=== PATIENT | male | born 2000 | race African-American/Black ===

== ENCOUNTER 2021-11-19 17:21 | Emergency (ER) | payer MEDICARE, OTHER ==
[~2021-11-19] VITALS: Ht 188 cm; Wt 65.9 kg
[2021-11-19 18:37] LABS: BASOPHILS % (AUTO) 0.7 % (0.0-2.0); EOSINOPHILS % (AUTO) 2.1 % (1.0-6.0); HEMATOCRIT 46.7 % (41-53); HEMOGLOBIN 15.6 g/dL (13.5-17.5); LYMPHOCYTES # (AUTO) 1.6 K/uL (1.0-4.8); LYMPHOCYTES % (AUTO) 28.4 % (22.0-44.0); MEAN CORPUSCULAR HEMOGLOBIN 29.8 pg (26.0-34.0); MEAN CORPUSCULAR HGB CONC 33.4 G/dL (31.0-37.0); MEAN CORPUSCULAR VOLUME 89 fL (80-100); MONOCYTES # (AUTO) 0.6 K/uL (0.1-1.0); MONOCYTES % (AUTO) 10.7 % (2.0-9.0); NEUTROPHILS # (AUTO) 3.3 K/uL (1.8-7.7); NEUTROPHILS % (AUTO) 58.1 % (40.0-70.0); PLATELET COUNT (AUTO) 231 K/uL (150-450); RED BLOOD CELL COUNT(AUTO) 5.24 MIL/uL (4.50-5.90); RED CELL DISTRIBUTION WIDTH 13.5 % (11.5-14.5)
[2021-11-19 18:45] LABS: ANION GAP 7 mmol/L (8-16); CARBON DIOXIDE 30 mmol/L (22-29); CHLORIDE 102 mmol/L (98-107); CREATININE 1.11 mg/dL (0.60-1.30); GLOMERULAR FILTR. RATE CALC > 60 mL/min (>60); GLUCOSE,RANDOM 93 mg/dL (70-110); POTASSIUM 3.8 mmol/L (3.5-5.1); SODIUM SERUM 139 mmol/L (136-145); UREA NITROGEN, BLOOD 17 mg/dL (7-18)
[2021-11-19 18:51] LABS: ALANINE AMINOTRANSFERASE 18 U/L (12-78); ALBUMIN 4.8 g/dL (3.4-5.0); ALKALINE PHOSPHATASE 203 U/L (46-116); ASPARTATE AMINOTRANSFERASE 21 U/L (15-37); BILIRUBIN,TOTAL 0.3 mg/dL (0.1-1.0); TOTAL PROTEIN, SERUM 9.1 g/dL (6.4-8.2)
[2021-11-19] MEDS ORDERED: LORazepam 1 MG TABLET PO ONE (22:15)
[2021-11-19 23:00] VITALS: BP 140/65
== END 2021-11-19 23:15 | disposition home or self-care (01) ==
LOC: EMS 17:23
DX: F20.9 Schizophrenia, unspecified (principal)
CPT/HCPCS: 80053; 85025; 99285; G0480

== ENCOUNTER 2022-05-24 17:12 | Inpatient (IN) | payer MEDICARE, MEDICAID ==
[~2022-05-24] VITALS: Ht 188 cm; Wt 83.7 kg
[2022-05-24 18:12] LABS: BASOPHILS % (AUTO) 0.4 % (0.0-2.0); EOSINOPHILS % (AUTO) 1.7 % (1.0-6.0); HEMATOCRIT 41.1 % (41-53); HEMOGLOBIN 13.9 g/dL (13.5-17.5); LYMPHOCYTES # (AUTO) 1.5 K/uL (1.0-4.8); LYMPHOCYTES % (AUTO) 29.7 % (22.0-44.0); MEAN CORPUSCULAR HEMOGLOBIN 29.8 pg (26.0-34.0); MEAN CORPUSCULAR HGB CONC 33.8 G/dL (31.0-37.0); MEAN CORPUSCULAR VOLUME 88 fL (80-100); MONOCYTES # (AUTO) 0.5 K/uL (0.1-1.0); MONOCYTES % (AUTO) 10.7 % (2.0-9.0); NEUTROPHILS # (AUTO) 2.9 K/uL (1.8-7.7); NEUTROPHILS % (AUTO) 57.5 % (40.0-70.0); PLATELET COUNT (AUTO) 200 K/uL (150-450); RED BLOOD CELL COUNT(AUTO) 4.66 MIL/uL (4.50-5.90); RED CELL DISTRIBUTION WIDTH 14.7 % (11.5-14.5)
[2022-05-24 18:20] LABS: ANION GAP 8 mmol/L (8-16); CALCIUM, TOTAL 9.3 mg/dL (8.8-10.5); CARBON DIOXIDE 27 mmol/L (22-29); CHLORIDE 105 mmol/L (98-107); CREATININE 0.87 mg/dL (0.60-1.30); GLUCOSE,RANDOM 122 mg/dL (70-110); POTASSIUM 4.2 mmol/L (3.5-5.1); SODIUM SERUM 140 mmol/L (136-145); UREA NITROGEN, BLOOD 12 mg/dL (7-18)
[2022-05-24 18:24] LABS: GLOMERULAR FILTR. RATE CALC > 60 mL/min (>60)
[2022-05-24 18:26] LABS: ALANINE AMINOTRANSFERASE 84 U/L (12-78); ALBUMIN 4.2 g/dL (3.4-5.0); ALKALINE PHOSPHATASE 243 U/L (46-116); ASPARTATE AMINOTRANSFERASE 57 U/L (15-37); BILIRUBIN,TOTAL 0.2 mg/dL (0.1-1.0)
[2022-05-24] MEDS ORDERED: OXCA300T57 PO (21:30)
[2022-05-24] MEDS ORDERED: DOCU-385 PO (21:30)
[2022-05-24] MEDS ORDERED: OLAN10TA74 PO (21:30)
[2022-05-24] MEDS ORDERED: MELA5TAB40 PO (21:30)
[2022-05-24] MEDS ORDERED: GABA-1201 PO (21:30)
[2022-05-24] MEDS ORDERED: TRAZ-257 PO (21:30)
[2022-05-24] MEDS ORDERED: PROP20TA18 PO (21:30)
[2022-05-24 21:34] LABS: AMPHET/METH SCREEN,URINE NEGATIVE (NEGATIVE); BARBITURATE SCREEN, URINE NEGATIVE (NEGATIVE); BENZODIAZEPINES SCREEN,URINE NEGATIVE (NEGATIVE); CANNABINOID SCREEN,URINE NEGATIVE (NEGATIVE); COCAINE SCREEN,URINE NEGATIVE (NEGATIVE); METHADONE SCREEN, URINE NEGATIVE (NEGATIVE); OPIATE SCREEN,URINE NEGATIVE (NEGATIVE)
[2022-05-24 21:35] LABS: PHENCYCLIDINE SCREEN,URINE NEGATIVE (NEGATIVE)
[2022-05-24] MEDS ORDERED: ChlorproMAZINE HCL 100 MG TABLET PO PRN (23:00)
[2022-05-24] MEDS: ZOLPIDEM TARTRATE 10 MG TABLET PO PRN (23:41)
[2022-05-24 23:49] LABS: APPEARANCE,URINE CLEAR (CLEAR); BILIRUBIN,URINE NEGATIVE (NEGATIVE); GLUCOSE, URINE (UA) NEGATIVE (NEGATIVE); KETONES,URINE NEGATIVE (NEGATIVE); LEUKOCYTE ESTERASE ,URINE NEGATIVE (NEGATIVE); NITRATE,URINE NEGATIVE (NEGATIVE); OCCULT BLOOD,URINE NEGATIVE (NEGATIVE); PROTEIN,URINE NEGATIVE (NEGATIVE); SPECIFIC GRAVITIY, URINE 1.027 (1.003-1.030)
[2022-05-25 05:38] LABS: COVID AG,FIA SOURCE NASOPHARYNGEAL
[2022-05-25] MEDS: OLANZapine 5 MG RAPDIS TABLET PO SCH ×3 (08:33→16:58)
[2022-05-25] MEDS: GABAPENTIN 400 MG CAPSULE PO SCH ×4 (08:33→20:12)
[2022-05-25] MEDS: DIVALPROEX SODIUM 250 MG DR TABLET PO SCH ×3 (08:33→16:57)
[2022-05-25 09:20] VITALS: BP 154/96
[2022-05-25 09:21] VITALS: BP 154/96
[2022-05-25] MEDS: LORazepam 1 MG TABLET PO PRN ×2 (09:37→16:58)
[2022-05-25] MEDS ORDERED: LOPERAMIDE HCL 2 MG CAPSULE PO PRN (11:30)
[2022-05-25] MEDS ORDERED: TUBERCULIN, PURIFIED PROTEIN DERIVATIVE 5 TU/0.1 ML SYRINGE ID ONE (11:30)
[2022-05-25] MEDS ORDERED: ACETAMINOPHEN 325 MG TABLET PO PRN (11:30)
[2022-05-25] MEDS ORDERED: HydrOXYzine PAMOATE 50 MG CAPSULE PO PRN (11:30)
[2022-05-25] MEDS ORDERED: PROMETHAZINE HCL 25 MG TABLET PO PRN (11:30)
[2022-05-25] MEDS ORDERED: MAG HYDROX/AL HYDROX/SIMETH ES 30 ML SUSPENSION UDCUP PO PRN (11:30)
[2022-05-25] MEDS ORDERED: MAGNESIUM HYDROXIDE SUSPENSION 30 ML UDCUP PO PRN (11:30)
[2022-05-25] MEDS ORDERED: GuaiFENesin/D-METHORPHAN [SUGAR-FREE] 200-20MG/10 ML SYRUP UDCUP PO PRN (11:30)
[2022-05-25] MEDS: GuanFACINE HCL 1 MG TABLET PO SCH ×2 (13:00→16:57)
[2022-05-25 16:07] VITALS: BP 112/69
[2022-05-25] MEDS: THIAMINE 100 MG TABLET PO SCH (16:57)
[2022-05-25] MEDS: ZOLPIDEM TARTRATE 10 MG TABLET PO PRN (20:13)
[2022-05-25] MEDS: MELATONIN 5 MG TABLET PO SCH (20:13)
[2022-05-25] MEDS ORDERED: GABAPENTIN 400 MG CAPSULE PO SCH (21:00)
[2022-05-26 07:09] LABS: HEMOGLOBIN A1C 5.6 % (3.8-5.6)
[2022-05-26 07:24] LABS: CHOL/HDL RATIO 5.5 (4.2-7.3); FREE T4 (FREE THYROXINE) 0.94 ng/dL (0.76-1.46)
[2022-05-26 08:14] VITALS: BP 106/70
[2022-05-26] MEDS: OMEGA-3/DHA/EPA/FISH OIL 1,000 MG CAPSULE PO SCH (08:24)
[2022-05-26] MEDS: LORazepam 1 MG TABLET PO PRN ×2 (08:25→16:23)
[2022-05-26] MEDS: THIAMINE 100 MG TABLET PO SCH ×2 (08:25→16:22)
[2022-05-26] MEDS: DIVALPROEX SODIUM 250 MG DR TABLET PO SCH ×3 (08:25→16:22)
[2022-05-26] MEDS: FOLIC ACID 1 MG TABLET PO SCH (08:25)
[2022-05-26] MEDS: MULTIVITAMINS WITH MINERALS, THERAPEUTIC TABLET PO SCH (08:25)
[2022-05-26] MEDS: GABAPENTIN 400 MG CAPSULE PO SCH ×4 (08:25→20:08)
[2022-05-26] MEDS: OLANZapine 5 MG RAPDIS TABLET PO SCH ×3 (08:25→16:22)
[2022-05-26] MEDS: NALTREXONE HCL 50 MG TABLET PO SCH (08:25)
[2022-05-26] MEDS: GuanFACINE HCL 1 MG TABLET PO SCH ×2 (08:26→12:54)
[2022-05-26 16:23] VITALS: BP 123/69
[2022-05-26] MEDS: DIVALPROEX SODIUM 250 MG ER TABLET PO SCH (20:08)
[2022-05-26] MEDS: MELATONIN 5 MG TABLET PO SCH (20:09)
[2022-05-26 20:10] VITALS: BP 119/70
[2022-05-26] MEDS: ZOLPIDEM TARTRATE 10 MG TABLET PO PRN (21:18)
[2022-05-27] MEDS: LORazepam 1 MG TABLET PO PRN ×2 (08:36→16:52)
[2022-05-27] MEDS: OMEGA-3/DHA/EPA/FISH OIL 1,000 MG CAPSULE PO SCH (08:36)
[2022-05-27] MEDS: MULTIVITAMINS WITH MINERALS, THERAPEUTIC TABLET PO SCH (08:36)
[2022-05-27] MEDS: GABAPENTIN 400 MG CAPSULE PO SCH ×4 (08:36→20:43)
[2022-05-27] MEDS: THIAMINE 100 MG TABLET PO SCH ×2 (08:36→16:55)
[2022-05-27] MEDS: NALTREXONE HCL 50 MG TABLET PO SCH (08:36)
[2022-05-27] MEDS: FOLIC ACID 1 MG TABLET PO SCH (08:36)
[2022-05-27] MEDS: OLANZapine 5 MG RAPDIS TABLET PO SCH ×3 (08:37→16:52)
[2022-05-27] MEDS: DIVALPROEX SODIUM 250 MG DR TABLET PO SCH ×3 (08:37→16:52)
[2022-05-27] MEDS: GuanFACINE HCL 1 MG TABLET PO SCH ×3 (08:37→16:52)
[2022-05-27 08:46] VITALS: BP 113/73
[2022-05-27 20:05] VITALS: BP 118/82
[2022-05-27] MEDS: MELATONIN 5 MG TABLET PO SCH (20:43)
[2022-05-27] MEDS: DIVALPROEX SODIUM 250 MG ER TABLET PO SCH (20:43)
[2022-05-27] MEDS: ZOLPIDEM TARTRATE 10 MG TABLET PO PRN (20:44)
[2022-05-28 08:05] VITALS: BP 122/70
[2022-05-28] MEDS: DIVALPROEX SODIUM 250 MG DR TABLET PO SCH ×3 (08:22→16:18)
[2022-05-28] MEDS: MULTIVITAMINS WITH MINERALS, THERAPEUTIC TABLET PO SCH (08:22)
[2022-05-28] MEDS: OMEGA-3/DHA/EPA/FISH OIL 1,000 MG CAPSULE PO SCH (08:22)
[2022-05-28] MEDS: NALTREXONE HCL 50 MG TABLET PO SCH (08:22)
[2022-05-28] MEDS: FOLIC ACID 1 MG TABLET PO SCH (08:22)
[2022-05-28] MEDS: THIAMINE 100 MG TABLET PO SCH ×2 (08:22→16:18)
[2022-05-28] MEDS: GABAPENTIN 400 MG CAPSULE PO SCH ×4 (08:22→20:33)
[2022-05-28] MEDS: OLANZapine 5 MG RAPDIS TABLET PO SCH ×3 (08:22→16:18)
[2022-05-28] MEDS: GuanFACINE HCL 1 MG TABLET PO SCH ×3 (08:23→16:17)
[2022-05-28] MEDS: LORazepam 1 MG TABLET PO PRN (08:23)
[2022-05-28 20:27] VITALS: BP 110/62
[2022-05-28] MEDS: MELATONIN 5 MG TABLET PO SCH (20:33)
[2022-05-28] MEDS: DIVALPROEX SODIUM 250 MG ER TABLET PO SCH (20:33)
[2022-05-29 08:17] VITALS: BP 101/63
[2022-05-29 08:55] VITALS: BP 108/70
[2022-05-29] MEDS: FOLIC ACID 1 MG TABLET PO SCH (09:00)
[2022-05-29] MEDS: NALTREXONE HCL 50 MG TABLET PO SCH (09:00)
[2022-05-29] MEDS: DIVALPROEX SODIUM 250 MG DR TABLET PO SCH ×3 (09:00→16:10)
[2022-05-29] MEDS: GABAPENTIN 400 MG CAPSULE PO SCH ×3 (09:00→16:10)
[2022-05-29] MEDS: THIAMINE 100 MG TABLET PO SCH ×2 (09:00→16:10)
[2022-05-29] MEDS: GuanFACINE HCL 1 MG TABLET PO SCH ×3 (09:00→16:10)
[2022-05-29] MEDS: MULTIVITAMINS WITH MINERALS, THERAPEUTIC TABLET PO SCH (09:00)
[2022-05-29] MEDS: OMEGA-3/DHA/EPA/FISH OIL 1,000 MG CAPSULE PO SCH (09:00)
[2022-05-29] MEDS: OLANZapine 5 MG RAPDIS TABLET PO SCH ×3 (09:01→16:10)
[2022-05-29] MEDS ORDERED: DIVA-85 PO ×2 (10:17→17:07)
[2022-05-29] MEDS ORDERED: NALT50TA PO (10:17)
[2022-05-29] MEDS ORDERED: GUAN1TAB2 PO (10:17)
[2022-05-29] MEDS ORDERED: MELA5TAB40 PO ×2 (10:17→17:08)
[2022-05-29] MEDS ORDERED: OMEG-135 PO (10:17)
[2022-05-29] MEDS ORDERED: GABA-1201 PO (10:17)
[2022-05-29] MEDS ORDERED: OLAN5TAB94 PO ×2 (10:17→17:09)
[2022-05-29] MEDS ORDERED: DIVA-111 PO (10:17)
[2022-05-29] MEDS ORDERED: DIVA-112 PO (17:08)
[2022-05-29] MEDS ORDERED: GUAN1TAB22 PO (17:09)
[2022-05-30] MEDS ORDERED: GABA-1201 PO (12:06)
[2022-05-30] MEDS ORDERED: OMEG-135 PO (12:06)
[2022-05-30] MEDS ORDERED: DIVA-85 PO (12:06)
[2022-05-30] MEDS ORDERED: GUAN1TAB2 PO (12:06)
[2022-05-30] MEDS ORDERED: DIVA-111 PO (12:06)
[2022-05-30] MEDS ORDERED: MELA5TAB40 PO (12:06)
[2022-05-30] MEDS ORDERED: NALT50TA PO (12:06)
[2022-05-30] MEDS ORDERED: OLAN5TAB52 PO (12:09)
== END 2022-05-29 19:23 | disposition home or self-care (01) | DRG 885 ==
LOC: EMS 17:15 → B3A 05-25 05:27
PROVIDERS: ADMIT Psychiatry & Neurology Psychiatry; ATTEND Psychiatry & Neurology Psychiatry
DX: F31.9 Bipolar disorder, unspecified (principal); F63.81 Intermittent explosive disorder; F79 Unspecified intellectual disabilities; Z20.822 Contact with and (suspected) exposure to COVID-19; F41.9 Anxiety disorder, unspecified; K59.00 Constipation, unspecified; G47.00 Insomnia, unspecified; K21.9 Gastro-esophageal reflux disease without esophagitis; F90.9 Attention-deficit hyperactivity disorder, unspecified type; I10 Essential (primary) hypertension; Z55.9 Problems related to education and literacy, unspecified; Z59.9 Problem related to housing and economic circumstances, unspecified; Z63.9 Problem related to primary support group, unspecified; Z65.3 Problems related to other legal circumstances; Z79.899 Other long term (current) drug therapy
CPT/HCPCS: 80053; 80061; 80164; 81003; 83036; 84436; 84439; 85025; 86592; 99285; G0480; Q9967